=== PATIENT | male | born 1965 | race Caucasian/White ===

== ENCOUNTER 2016-12-16 03:41 | Emergency (ER) | payer MEDICAID ==
[~2016-12-16] VITALS: Ht 190.5 cm; Wt 100.6 kg
[~2016-12-16 03:41] MED LIST: AMIO200T42 PO; ASPI-496 PO; DIGO250T PO; FURO20TA3 PO; LOVA20TA2 PO; NICO1PAT5 TD; TAMS0.4C2 PO; WARF5TAB7 PO
[2016-12-16] MEDS ORDERED: CEFAZOLIN 1,000 MG ONE (04:58)
[2016-12-16] MEDS ORDERED: OXYcodone/APAP 5/325MG TABLET ONE (04:58)
[2016-12-16] MEDS ORDERED: KETOROLAC 30 MG/1 ML ONE (04:58)
[2016-12-16] MEDS ORDERED: KETOROLAC 30 MG/1 ML IM ONE (05:00)
[2016-12-16] MEDS ORDERED: CEFAZOLIN 1,000 MG IM ONE (05:00)
[2016-12-16] MEDS ORDERED: OXYcodone/APAP 5/325MG TABLET PO ONE ×2 (05:00→07:00)
[2016-12-16] MEDS ORDERED: BACITRACIN ZINC OINT 500U/GM, 0.9 GM ONE (05:18)
[2016-12-16] MEDS ORDERED: LORazepam 1MG TABLET ONE (05:28)
[2016-12-16] MEDS ORDERED: LORazepam 1MG TABLET PO ONE (05:30)
[2016-12-16] MEDS ORDERED: L.E.T SOLUTION TP ONE (07:00)
[2016-12-16 07:54] VITALS: BP 112/76
== END 2016-12-16 07:56 | disposition home or self-care (01) ==
LOC: ED 06:44
DX: L03.115 Cellulitis of right lower limb (principal); Z76.5 Malingerer [conscious simulation]; N40.0 Benign prostatic hyperplasia without lower urinary tract symptoms; G43.909 Migraine, unspecified, not intractable, without status migrainosus; I50.9 Heart failure, unspecified; F17.210 Nicotine dependence, cigarettes, uncomplicated; Z79.01 Long term (current) use of anticoagulants
CPT/HCPCS: 36415; 73590; 85025; 85610; 93971; 96372; 99285; J0690

== ENCOUNTER 2017-01-07 09:57 | Inpatient (IN) | payer MEDICAID ==
[~2017-01-07] VITALS: Ht 186.7 cm; Wt 97.9 kg
[2017-01-07] MEDS ORDERED: ASPIRIN 81 MG TABLET CHEW ONE (11:21)
[2017-01-07] MEDS ORDERED: METOPROLOL 1 MG/ML, 5ML ONE (11:21)
[2017-01-07] MEDS ORDERED: MORPHINE SULFATE 4 MG/ML, 1ML ONE (11:21)
[2017-01-07] MEDS ORDERED: HYDROmorphone 1 MG/ML, 1ML ONE (12:24)
[2017-01-07] MEDS ORDERED: morphine SULFATE 10 MG/ML, 1ML ONE (14:56)
[2017-01-07 18:22] LABS: IS PT STATUS REG ER OR PRE ER? NO
[2017-01-07 19:45] VITALS: BP 134/96
[2017-01-07] MEDS: morphine SULFATE 10 MG/ML, 1ML IV PRN ×2 (19:55→23:58)
[2017-01-07] MEDS ORDERED: NITROGLYCERIN 0.4 MG BOTTLE (25 TABS) SL PRN (20:00)
[2017-01-07] MEDS ORDERED: ACETAMINOPHEN 325 MG TABLET PO PRN (20:00)
[2017-01-07] MEDS: POTASSIUM CHLORIDE 20 MEQ TAB.ER.PRT PO SCH (20:50)
[2017-01-07] MEDS: DOXYCYCLINE 100 MG in DEXTROSE 5% 250 ML IV SCH (20:51)
[2017-01-07] MEDS: CEFTRIAXONE 1,000 MG in DEXTROSE 5% 50 ML IVPB SCH (20:51)
[2017-01-07] MEDS: HYDROcodone/APAP 5/325 TABLET PO PRN (20:52)
[2017-01-07] MEDS: ONDANSETRON 2MG/ML, 2ML IV PRN (21:03)
[2017-01-07] MEDS ORDERED: WARFARIN 3 MG TABLET PO-COUM ONE (21:30)
[2017-01-07] MEDS: TAMSULOSIN 0.4 MG CAP.ER.24H PO SCH (22:37)
[2017-01-07] MEDS: LOVASTATIN 40 MG TABLET PO SCH (22:39)
[2017-01-08 00:11] LABS: IS PT STATUS REG ER OR PRE ER? NO
[2017-01-08 01:56] LABS: DAU SCREEN DISCLAIMER
[2017-01-08] MEDS: ONDANSETRON 2MG/ML, 2ML IV PRN ×3 (06:20→23:03)
[2017-01-08] MEDS: morphine SULFATE 10 MG/ML, 1ML IV PRN ×5 (06:20→22:59)
[2017-01-08] MEDS: ASPIRIN 325 MG TABLET EC PO SCH (06:20)
[2017-01-08] MEDS ORDERED: DIAZEPAM 5 MG TABLET ONE ×2 (06:52→16:04)
[2017-01-08] MEDS ORDERED: DIAZEPAM 5 MG TABLET PO ONE ×2 (07:00→16:30)
[2017-01-08 07:36] VITALS: BP 129/85
[2017-01-08 08:10] LABS: BLOOD UREA NITROGEN 23 mg/dL (7-18)
[2017-01-08 08:25] LABS: IS PT STATUS REG ER OR PRE ER? NO
[2017-01-08] MEDS ORDERED: REGADENOSON 0.4 MG/5 ML SYRINGE ONE (08:25)
[2017-01-08] MEDS: POTASSIUM CHLORIDE 20 MEQ TAB.ER.PRT PO SCH (08:25)
[2017-01-08] MEDS: DOXYCYCLINE 100 MG in DEXTROSE 5% 250 ML IV SCH ×2 (08:25→22:22)
[2017-01-08] MEDS: FUROSEMIDE 40 MG/4 ML IV SCH (08:25)
[2017-01-08] MEDS: HYDROcodone/APAP 5/325 TABLET PO PRN ×2 (08:25→21:35)
[2017-01-08 11:20] VITALS: BP 135/86
[2017-01-08] MEDS: DIGOXIN 0.25 MG TABLET PO SCH (11:32)
[2017-01-08] MEDS: AMIODARONE 200 MG TABLET PO SCH (11:32)
[2017-01-08 13:58] VITALS: BP 127/82
[2017-01-08] MEDS: NICOTINE 21 MG/24 HR PATCH.TD24 TD SCH (14:44)
[2017-01-08] MEDS ORDERED: DIAZEPAM 5 MG TABLET PO SCH (16:00)
[2017-01-08 16:30] LABS: ASPARTATE AMINO TRANSFERASE 27 U/L (15-37); BLOOD UREA NITROGEN 22 mg/dL (7-18)
[2017-01-08] MEDS ORDERED: DIAZEPAM 5 MG TABLET PO PRN (16:30)
[2017-01-08] MEDS ORDERED: DIAZEPAM 5 MG/ML, 2ML IV ONE (16:30)
[2017-01-08] MEDS ORDERED: WARFARIN 7.5 MG TABLET PO-COUM ONE (18:00)
[2017-01-08 20:16] VITALS: BP 138/94
[2017-01-08] MEDS: TAMSULOSIN 0.4 MG CAP.ER.24H PO SCH ×2 (21:00→21:32)
[2017-01-08] MEDS: CEFTRIAXONE 1,000 MG in DEXTROSE 5% 50 ML IVPB SCH (21:31)
[2017-01-08] MEDS: LOVASTATIN 40 MG TABLET PO SCH (21:32)
[2017-01-09 01:30] VITALS: BP 148/80
[2017-01-09] MEDS: ASPIRIN 325 MG TABLET EC PO SCH (05:17)
[2017-01-09] MEDS: ONDANSETRON 2MG/ML, 2ML IV PRN (05:22)
[2017-01-09] MEDS: morphine SULFATE 10 MG/ML, 1ML IV PRN ×2 (05:22→10:02)
[2017-01-09 08:49] VITALS: BP 145/88
[2017-01-09] MEDS: HYDROcodone/APAP 5/325 TABLET PO PRN ×2 (08:49→20:11)
[2017-01-09] MEDS: DOXYCYCLINE 100 MG in DEXTROSE 5% 250 ML IV SCH ×2 (08:49→22:14)
[2017-01-09] MEDS: DIGOXIN 0.25 MG TABLET PO SCH (08:49)
[2017-01-09] MEDS: FUROSEMIDE 40 MG/4 ML IV SCH (08:50)
[2017-01-09] MEDS: POTASSIUM CHLORIDE 20 MEQ TAB.ER.PRT PO SCH (08:50)
[2017-01-09] MEDS: AMIODARONE 200 MG TABLET PO SCH (08:50)
[2017-01-09] MEDS: DIAZEPAM 5 MG TABLET PO PRN ×2 (11:05→20:11)
[2017-01-09 11:44] LABS: IS PT STATUS REG ER OR PRE ER? NO
[2017-01-09] MEDS ORDERED: NITROGLYCERIN 5 MG/ML, 10ML ONE (12:24)
[2017-01-09] MEDS ORDERED: VERAPAMIL 2.5 MG/ML, 2ML ONE (12:24)
[2017-01-09] MEDS ORDERED: MIDAZOLAM 1 MG/ML, 5ML ONE (12:24)
[2017-01-09] MEDS ORDERED: TICAGRELOR 90 MG TABLET ONE (12:24)
[2017-01-09] MEDS ORDERED: FENTANYL PF 100 MCG/2ML ONE (12:24)
[2017-01-09] MEDS ORDERED: BIVALIRUDIN 250 MG ONE (12:25)
[2017-01-09] MEDS ORDERED: LIDOCAINE 2%, 20ML ONE (12:25)
[2017-01-09] MEDS ORDERED: HEPARIN 1,000 UNITS/ML, 10ML ONE (12:25)
[2017-01-09] MEDS: HYDROmorphone 1 MG/ML, 1ML IV PRN ×4 (12:58→22:12)
[2017-01-09] MEDS ORDERED: DEXAMETHASONE 4 MG/ML, 1ML ONE (13:28)
[2017-01-09] MEDS ORDERED: NALOXONE 0.4 MG/ML, 1ML ONE (13:28)
[2017-01-09] MEDS ORDERED: PHENYLEPHRINE 10 MG/ML ONE (13:28)
[2017-01-09] MEDS ORDERED: ONDANSETRON 2MG/ML, 2ML ONE (13:28)
[2017-01-09] MEDS ORDERED: PROPOFOL 10 MG/ML, 20ML ONE (13:28)
[2017-01-09] MEDS: SODIUM CHLORIDE 0.9% 1,000 ML IV SCH ×2 (14:18→21:12)
[2017-01-09] MEDS ORDERED: OXYcodone 5 MG/5 ML ORAL.SOL UDC ONE (14:44)
[2017-01-09] MEDS ORDERED: HYDROmorphone 1 MG/ML, 1ML IV PRN (15:00)
[2017-01-09] MEDS ORDERED: hydrALAzine 20 MG/ML, 1ML IV PRN (15:00)
[2017-01-09] MEDS ORDERED: LABETALOL 5MG/ML, 20ML IV PRN (15:00)
[2017-01-09] MEDS ORDERED: MEPERIDINE/PF 25MG/0.5ML IVPush PRN (15:00)
[2017-01-09] MEDS ORDERED: OXYcodone 5 MG/5 ML ORAL.SOL UDC PO PRN (15:00)
[2017-01-09] MEDS ORDERED: PROMETHAZINE 25 MG/ML, 1ML IV PRN (15:00)
[2017-01-09] MEDS ORDERED: FENTANYL PF 100 MCG/2ML IV PRN (15:00)
[2017-01-09] MEDS ORDERED: MIDAZOLAM 1 MG/ML, 2ML IV PRN (15:00)
[2017-01-09] MEDS ORDERED: ALBUTEROL SULFATE 2.5 MG/3 ML NPPB PRN (15:00)
[2017-01-09] MEDS ORDERED: ONDANSETRON 2MG/ML, 2ML IVPush PRN (15:00)
[2017-01-09 15:15] VITALS: BP 116/81
[2017-01-09] MEDS: NICOTINE 21 MG/24 HR PATCH.TD24 TD SCH (15:32)
[2017-01-09] MEDS ORDERED: WARFARIN 3 MG TABLET PO-COUM ONE (18:00)
[2017-01-09 18:43] VITALS: BP 124/78
[2017-01-09 19:14] VITALS: BP 137/86
[2017-01-09] MEDS: TAMSULOSIN 0.4 MG CAP.ER.24H PO SCH (20:09)
[2017-01-09] MEDS: LOVASTATIN 40 MG TABLET PO SCH (20:10)
[2017-01-09] MEDS: CEFTRIAXONE 1,000 MG in DEXTROSE 5% 50 ML IVPB SCH (20:12)
[2017-01-10 02:09] VITALS: BP 117/86
[2017-01-10] MEDS: HYDROmorphone 1 MG/ML, 1ML IV PRN ×3 (02:13→12:35)
[2017-01-10] MEDS: ASPIRIN 325 MG TABLET EC PO SCH (06:00)
[2017-01-10] MEDS: SODIUM CHLORIDE 0.9% 1,000 ML IV SCH (06:18)
[2017-01-10 08:44] VITALS: BP 134/84
[2017-01-10] MEDS: DOXYCYCLINE 100 MG in DEXTROSE 5% 250 ML IV SCH (08:56)
[2017-01-10] MEDS: DIAZEPAM 5 MG TABLET PO PRN (08:56)
[2017-01-10] MEDS: FUROSEMIDE 40 MG/4 ML IV SCH (08:57)
[2017-01-10] MEDS: POTASSIUM CHLORIDE 20 MEQ TAB.ER.PRT PO SCH (08:58)
[2017-01-10] MEDS: AMIODARONE 200 MG TABLET PO SCH (08:58)
[2017-01-10] MEDS: DIGOXIN 0.25 MG TABLET PO SCH (08:59)
[2017-01-10] MEDS ORDERED: METOPROLOL SUCCINATE 25 MG TAB.ER.24H PO SCH (09:30)
[2017-01-10] MEDS: HYDROcodone/APAP 5/325 TABLET PO PRN (10:44)
[2017-01-10] MEDS: NICOTINE 21 MG/24 HR PATCH.TD24 TD SCH (12:40)
[2017-01-10 13:29] VITALS: BP 140/102
[2017-01-10] MEDS ORDERED: NITR0.4T SL (14:39)
[2017-01-10] MEDS ORDERED: NICO1PAT5 TD (14:39)
[2017-01-10] MEDS ORDERED: METO25TA91 PO (14:39)
[2017-01-10] MEDS ORDERED: DIAZEPAM 5 MG TABLET PO ONE (15:30)
[2017-01-10] MEDS ORDERED: DIAZ5TAB PO (16:13)
[2017-01-10] MEDS ORDERED: WARFARIN 5 MG TABLET PO-COUM ONE ×2 (18:00)
[2017-01-11] MEDS ORDERED: FUROSEMIDE 80 MG TABLET PO SCH (09:00)
== END 2017-01-10 17:06 | disposition home or self-care (01) | DRG 287 ==
LOC: ED 09:57 → 5SO 17:02
PROVIDERS: ADMIT Internal Medicine; ATTEND Internal Medicine
PROC: B2111ZZ Fluoroscopy of Multiple Coronary Arteries using Low Osmolar Contrast (ICD-10-PCS; 2017-01-09)
PROC: B2151ZZ Fluoroscopy of Left Heart using Low Osmolar Contrast (ICD-10-PCS; 2017-01-09)
PROC: 4A023N7 Measurement of Cardiac Sampling and Pressure, Left Heart, Percutaneous Approach (ICD-10-PCS; principal; 2017-01-09 13:00)
DX: I25.119 Atherosclerotic heart disease of native coronary artery with unspecified angina pectoris (principal); D68.69 Other thrombophilia; L03.115 Cellulitis of right lower limb; I50.9 Heart failure, unspecified; F17.210 Nicotine dependence, cigarettes, uncomplicated; I48.2 Chronic atrial fibrillation; K74.60 Unspecified cirrhosis of liver; I27.81 Cor pulmonale (chronic); I11.0 Hypertensive heart disease with heart failure; I45.10 Unspecified right bundle-branch block; Z90.89 Acquired absence of other organs; Z79.01 Long term (current) use of anticoagulants; Z98.42 Cataract extraction status, left eye; Z86.711 Personal history of pulmonary embolism; I25.2 Old myocardial infarction; Z86.73 Personal history of transient ischemic attack (TIA), and cerebral infarction without residual deficits; Z98.41 Cataract extraction status, right eye; Z80.9 Family history of malignant neoplasm, unspecified; Z79.899 Other long term (current) drug therapy
CPT/HCPCS: 36415; 71010; 78452; 80048; 80053; 80162; 80307; 83880; 84484; 85025; 85379; 85610; 93005; 93017; 93306; 93458; 99285; C1894; J0583; J0696; J1100; J1170; J1644; J1940; J2250; J2310; J2405; J2704; J2785; J3010; J3490; J7060; A9502; C9898; J2270; J2370; Q9967

== ENCOUNTER 2017-01-15 17:44 | Emergency (ER) | payer MEDICAID ==
[~2017-01-15] VITALS: Ht 185.4 cm; Wt 101.0 kg
[~2017-01-15 17:44] MED LIST changes: +DIAZ5TAB PO; +METO25TA91 PO; +NITR0.4T SL
[2017-01-15 17:46] VITALS: BP 128/86
[2017-01-15] MEDS ORDERED: DILTIAZEM 5 MG/ML, 5ML ONE (18:23)
[2017-01-15] MEDS ORDERED: SODIUM CHLORIDE FLUSH 10ML SYR IVF ONE (18:30)
[2017-01-15] MEDS ORDERED: DILTIAZEM 5 MG/ML, 5ML IV ONE (18:30)
== END 2017-01-15 19:47 | disposition left against medical advice (07) ==
LOC: ED 19:41
DX: R07.89 Other chest pain (principal); E78.5 Hyperlipidemia, unspecified; F17.200 Nicotine dependence, unspecified, uncomplicated; I48.2 Chronic atrial fibrillation; N40.0 Benign prostatic hyperplasia without lower urinary tract symptoms; Z79.01 Long term (current) use of anticoagulants; Z88.1 Allergy status to other antibiotic agents; Z88.8 Allergy status to other drugs, medicaments and biological substances
CPT/HCPCS: 71010; 93005; 96374

== ENCOUNTER 2017-01-17 22:41 | Emergency (ER) | payer MEDICAID ==
[~2017-01-17] VITALS: Ht 180.3 cm; Wt 80.0 kg
[2017-01-17 22:45] VITALS: BP 154/98
[2017-01-17] MEDS ORDERED: ASPIRIN 81 MG TABLET CHEW ONE (23:55)
[2017-01-18] MEDS ORDERED: ASPIRIN 81 MG TABLET CHEW PO ONE
[2017-01-18 00:12] LABS: BLOOD UREA NITROGEN 25 mg/dL (7-18)
[2017-01-18 00:17] LABS: IS PT STATUS REG ER OR PRE ER? YES
== END 2017-01-18 00:07 | disposition home or self-care (01) ==
LOC: ED 23:59
DX: I48.2 Chronic atrial fibrillation (principal); R94.31 Abnormal electrocardiogram [ECG] [EKG]; F15.129 Other stimulant abuse with intoxication, unspecified
CPT/HCPCS: 36415; 80048; 80162; 82040; 84484; 85025; 85610; 93005; 99285

== ENCOUNTER 2017-03-20 17:23 | Inpatient (IN) | payer MEDICAID ==
[~2017-03-20] VITALS: Ht 185.4 cm; Wt 98.2 kg
[2017-03-20] MEDS ORDERED: WARF6TAB7 PO (17:53)
[2017-03-20] MEDS ORDERED: ASPIRIN 81 MG TABLET CHEW ONE (17:57)
[2017-03-20] MEDS ORDERED: ASPIRIN 81 MG TABLET CHEW PO ONE (18:00)
[2017-03-20] MEDS ORDERED: SODIUM CHLORIDE FLUSH 10ML SYR IVF ONE (18:00)
[2017-03-20 18:28] LABS: BLOOD UREA NITROGEN 23 mg/dL (7-18)
[2017-03-20 18:33] LABS: IS PT STATUS REG ER OR PRE ER? YES
[2017-03-20] MEDS ORDERED: DILTIAZEM 125 MG in DEXTROSE 5% 100 ML IV SCH (18:37)
[2017-03-20 18:55] LABS: HEMATOCRIT 37.9 % (39.2-51.8); HEMOGLOBIN 12.2 g/dL (13.7-18.0); WHITE BLOOD COUNT 5.5 x10^3/uL (3.4-10)
[2017-03-20] MEDS ORDERED: SODIUM CHLORIDE 0.9% 1,000ML IVBOLUS ONE (19:00)
[2017-03-20] MEDS ORDERED: LORazepam 2 MG/ML, 1ML IVPush ONE (19:00)
[2017-03-20] MEDS ORDERED: DILTIAZEM 5 MG/ML, 5ML IV ONE (19:00)
[2017-03-20 19:20] LABS: ASPARTATE AMINO TRANSFERASE 50 U/L (15-37)
[2017-03-20] MEDS ORDERED: DILTIAZEM 5 MG/ML, 5ML ONE (19:29)
[2017-03-20] MEDS ORDERED: LORazepam 2 MG/ML, 1ML ONE (19:29)
[2017-03-20] MEDS ORDERED: BISACODYL 10 MG SUPP PR PRN (20:30)
[2017-03-20] MEDS ORDERED: morphine SULFATE 10 MG/ML, 1ML IVPush PRN (20:30)
[2017-03-20] MEDS ORDERED: AMIODARONE 150 MG in DEXTROSE 5% 100 ML IV ONE (20:30)
[2017-03-20] MEDS ORDERED: HYDROcodone/APAP 5/325 TABLET PO PRN (20:30)
[2017-03-20] MEDS ORDERED: DIGOXIN 0.25 MG TABLET PO ONE (20:30)
[2017-03-20] MEDS ORDERED: LORazepam 1MG TABLET PO PRN (20:30)
[2017-03-20] MEDS ORDERED: NICOTINE 21 MG/24 HR PATCH.TD24 TD SCH (20:30)
[2017-03-20] MEDS ORDERED: ONDANSETRON 2MG/ML, 2ML IVPush PRN (20:30)
[2017-03-20] MEDS ORDERED: ENOXAPARIN 100 MG/ML SQ SCH (20:30)
[2017-03-20] MEDS ORDERED: ACETAMINOPHEN 325 MG TABLET PO PRN (20:30)
[2017-03-20] MEDS ORDERED: POLYETHYLENE GLYCOL 17 GM PACKET PO PRN (20:30)
[2017-03-20] MEDS ORDERED: DOCUSATE 100 MG CAPSULE PO PRN (20:30)
[2017-03-20] MEDS ORDERED: POTASSIUM CHLORIDE 20 MEQ TAB.ER.PRT PO ONE (20:30)
[2017-03-20] MEDS ORDERED: AMIODARONE 900 MG in DEXTROSE 5% 482 ML IV PRN (20:30)
[2017-03-20] MEDS ORDERED: NITROGLYCERIN 0.4 MG BOTTLE (25 TABS) SL PRN (20:30)
[2017-03-20] MEDS ORDERED: FUROSEMIDE 40 MG/4 ML IV ONE (20:30)
[2017-03-20] MEDS ORDERED: TAMSULOSIN 0.4 MG CAP.ER.24H PO SCH (21:00)
[2017-03-20] MEDS ORDERED: LOVASTATIN 40 MG TABLET PO SCH (21:00)
[2017-03-20] MEDS ORDERED: MORPHINE SULFATE 4 MG/ML, 1ML ONE (21:01)
[2017-03-20] MEDS ORDERED: WARFARIN 3 MG TABLET PO-COUM ONE (22:00)
[2017-03-20] MEDS ORDERED: FILTER 0.22 MICRON IV PRN (22:00)
[2017-03-20 23:21] LABS: IS PT STATUS REG ER OR PRE ER? NO
[2017-03-21 00:49] LABS: DAU SCREEN DISCLAIMER
[2017-03-21 01:07] VITALS: BP 130/77
[2017-03-21] MEDS ORDERED: POTASSIUM CHLORIDE 20 MEQ TAB.ER.PRT PO SCH (08:00)
[2017-03-21] MEDS ORDERED: ASPIRIN 81 MG TABLET EC PO SCH (09:00)
[2017-03-21] MEDS ORDERED: FUROSEMIDE 20 MG TABLET PO SCH (09:00)
[2017-03-21] MEDS ORDERED: DIGOXIN 0.25 MG TABLET PO SCH (09:00)
== END 2017-03-21 03:10 | disposition left against medical advice (07) | DRG 313 ==
LOC: ED 18:36 → SUATTDRO 20:03 → EDIP 20:13 → 5SO 21:31
DX: R07.89 Other chest pain (principal); I25.2 Old myocardial infarction; I11.0 Hypertensive heart disease with heart failure; D68.59 Other primary thrombophilia; I50.22 Chronic systolic (congestive) heart failure; E78.5 Hyperlipidemia, unspecified; F15.10 Other stimulant abuse, uncomplicated; I48.2 Chronic atrial fibrillation; G43.909 Migraine, unspecified, not intractable, without status migrainosus; D64.9 Anemia, unspecified; F17.200 Nicotine dependence, unspecified, uncomplicated; N40.0 Benign prostatic hyperplasia without lower urinary tract symptoms; Z79.01 Long term (current) use of anticoagulants; Z80.3 Family history of malignant neoplasm of breast; Z86.711 Personal history of pulmonary embolism; Z86.73 Personal history of transient ischemic attack (TIA), and cerebral infarction without residual deficits; Z91.14 Patient's other noncompliance with medication regimen; Z88.1 Allergy status to other antibiotic agents; Z88.8 Allergy status to other drugs, medicaments and biological substances; Z90.89 Acquired absence of other organs
CPT/HCPCS: 36415; 71010; 80053; 80162; 80307; 83735; 83880; 84436; 84443; 84484; 85025; 85610; 85730; 93005; 96365; 96375; J1650; J1940; J0282; J2060; J2270; J7030; J7060

== ENCOUNTER 2017-03-29 22:12 | Emergency (ER) | payer MEDICAID ==
[~2017-03-29] VITALS: Ht 185.4 cm; Wt 90.4 kg
[~2017-03-29 22:12] MED LIST changes: +NICO1PAT16 TD; -NICO1PAT5 TD; +WARF6TAB7 PO
[2017-03-29] MEDS ORDERED: DILTIAZEM 5 MG/ML, 5ML ONE ×2 (22:55→22:59)
[2017-03-29] MEDS ORDERED: DILTIAZEM 5 MG/ML, 5ML IV ONE (23:00)
[2017-03-29] MEDS ORDERED: SODIUM CHLORIDE 0.9% 1,000ML IVBOLUS ONE (23:00)
[2017-03-29 23:02] LABS: HEMATOCRIT 43.1 % (39.2-51.8); HEMOGLOBIN 13.9 g/dL (13.7-18.0); WHITE BLOOD COUNT 2.9 x10^3/uL (3.4-10)
[2017-03-29 23:14] LABS: BLOOD UREA NITROGEN 16 mg/dL (7-18)
[2017-03-29 23:21] LABS: IS PT STATUS REG ER OR PRE ER? YES
[2017-03-30 00:30] VITALS: BP 135/95
[2017-03-30] MEDS ORDERED: KETOROLAC 30 MG/1 ML IVPush ONE (00:30)
[2017-03-30] MEDS ORDERED: KETOROLAC 30 MG/1 ML ONE (00:46)
== END 2017-03-30 01:11 | disposition home or self-care (01) ==
LOC: ED 22:24
DX: R07.89 Other chest pain (principal); F15.10 Other stimulant abuse, uncomplicated; Z72.89 Other problems related to lifestyle; I25.2 Old myocardial infarction; I48.91 Unspecified atrial fibrillation; I50.9 Heart failure, unspecified; Z86.711 Personal history of pulmonary embolism; Z86.73 Personal history of transient ischemic attack (TIA), and cerebral infarction without residual deficits; Z88.1 Allergy status to other antibiotic agents; Z88.8 Allergy status to other drugs, medicaments and biological substances
CPT/HCPCS: 36415; 71010; 80048; 82040; 83735; 84484; 85025; 93005; 96360; 99285; J7030

== ENCOUNTER 2017-06-17 01:35 | Emergency (ER) | payer MEDICAID ==
[~2017-06-17] VITALS: Ht 185.4 cm; Wt 98.3 kg
[~2017-06-17 01:35] MED LIST changes: +NICO-487 TD; -NICO1PAT16 TD
[2017-06-17] MEDS ORDERED: LORazepam 2 MG/ML, 1ML ONE (02:15)
[2017-06-17] MEDS ORDERED: DILTIAZEM 5 MG/ML, 5ML ONE (02:15)
[2017-06-17] MEDS: LORazepam 2 MG/ML, 1ML IVPush ONE ×2 (03:02→03:41)
[2017-06-17] MEDS: DILTIAZEM 5 MG/ML, 5ML IVPush STA ×2 (03:02→03:41)
[2017-06-17 03:06] LABS: BLOOD UREA NITROGEN 26 mg/dL (7-18)
[2017-06-17 03:14] LABS: IS PT STATUS REG ER OR PRE ER? YES
[2017-06-17 03:15] LABS: HEMATOCRIT 35.4 % (39.2-51.8); HEMOGLOBIN 11.6 g/dL (13.7-18.0); WHITE BLOOD COUNT 5.6 x10^3/uL (3.4-10)
[2017-06-17] MEDS: DILTIAZEM 125 MG in DEXTROSE 5% 100 ML IV SCH (03:41)
[2017-06-17 03:46] VITALS: BP 129/96
== END 2017-06-17 04:11 | disposition other institution (70) ==
LOC: ED 01:57
DX: I48.2 Chronic atrial fibrillation (principal); E78.5 Hyperlipidemia, unspecified; I25.2 Old myocardial infarction; G43.909 Migraine, unspecified, not intractable, without status migrainosus; F15.20 Other stimulant dependence, uncomplicated; I50.9 Heart failure, unspecified
CPT/HCPCS: 36415; 71010; 80048; 82040; 83735; 84436; 84443; 84484; 85025; 85610; 86850; 86900; 93005; 96365; 96375; 99285; J2060